=== PATIENT | female | born 1950 | race Caucasian/White ===

== ENCOUNTER 2016-07-01 08:44 | Day surgery (SDC) | payer BC, MEDICARE ==
[~2016-07-01 08:44] MED LIST: LACTATED RINGERS 1,000 ML IV SCH
[2016-07-01] MEDS ORDERED: LACTATED RINGERS 1,000 ML ONE ×2 (09:18→09:50)
[2016-07-01] MEDS ORDERED: IV START KIT ONE (09:18)
[2016-07-01] MEDS ORDERED: PROPOFOL 20 ML IV ONE ×2 (09:49→10:16)
== END 2016-07-01 10:54 | disposition home or self-care (01) ==
LOC: SDC 08:44
PROVIDERS: ATTEND Internal Medicine Gastroenterology
PROC: 0DJD8ZZ Inspection of Lower Intestinal Tract, Via Natural or Artificial Opening Endoscopic (ICD-10-PCS; principal; 2016-07-01)
DX: Z12.11 Encounter for screening for malignant neoplasm of colon (principal); Z86.010 Personal history of colon polyps; Z80.0 Family history of malignant neoplasm of digestive organs; G47.33 Obstructive sleep apnea (adult) (pediatric); F41.9 Anxiety disorder, unspecified; F32.9 Major depressive disorder, single episode, unspecified; E11.9 Type 2 diabetes mellitus without complications; I10 Essential (primary) hypertension; E78.5 Hyperlipidemia, unspecified; Z79.84 Long term (current) use of oral hypoglycemic drugs; Z88.0 Allergy status to penicillin
CPT/HCPCS: 45378; J7120 ×2